=== PATIENT | female | born 1990 | race Caucasian/White ===

== ENCOUNTER 2023-11-17 13:25 | Outpatient (CLI) | payer OTHER | END 2023-11-17 23:59 | disposition home or self-care (01) | LOC: RAD 13:25 | PROVIDERS: ATTEND Physician Assistant | DX: M79.672 Pain in left foot (principal) | CPT/HCPCS: 73610; 73630 ==

== ENCOUNTER 2024-04-14 08:58 | Outpatient (CLI) | payer OTHER | END 2024-04-14 23:59 | disposition home or self-care (01) | LOC: MRI 08:58 | PROVIDERS: ATTEND Podiatrist | DX: M24.572 Contracture, left ankle (principal); M79.672 Pain in left foot; M72.2 Plantar fascial fibromatosis | CPT/HCPCS: 73718 ==